=== PATIENT | female | born 1935 | race Caucasian/White ===

== ENCOUNTER 2017-05-07 14:53 | Inpatient (IN) | payer MEDICARE, OTHER ==
[2017-05-07] VITALS (23 sets, daily range): BP systolic 78–183; BP diastolic 53–128
[~2017-05-07] VITALS: Ht 157.5 cm; Wt 68.0 kg
[2017-05-07] MEDS ORDERED: METO25TA6 PO (15:03)
[2017-05-07] MEDS ORDERED: PROG200C7 MT (15:04)
[2017-05-07] MEDS ORDERED: HYDR25TA PO (15:04)
[2017-05-07 15:51] LABS: CHLORIDE 104 mEq/L (98-107)
[2017-05-07 15:52] LABS: BASOPHILS % 0.9 % (0.0-2.0); EOSINOPHILS % 2.2 % (0.0-5.0); HEMATOCRIT. 34.4 % (36.0-48.0); HEMOGLOBIN. 11.6 g/dL (12.0-16.0); LYMPHOCYTES % 28.3 % (20.0-50.0); MEAN CORPUSCULAR HEMOGLOBIN 31.1 pg (28.0-32.0); MEAN CORPUSCULAR VOLUME 91.9 fL (81.0-99.0); MEAN PLATELET VOLUME 7.8 fl (7.4-10.4); NEUTROPHILS % 56.6 % (40.0-76.0); PLATELET 177 x1000/uL (130-400); RED BLOOD CELL COUNT 3.74 mill/uL (4.2-5.4); RED CELL DISTRIBUTION WIDTH 13.7 % (11.6-14.6)
[2017-05-07 15:59] LABS: INR 1.1
[2017-05-07 16:00] LABS: CARBON DIOXIDE 28 mEq/L (21-32)
[2017-05-07] MEDS ORDERED: NICARDIPINE 50 MG in SODIUM CHLORIDE 0.9% 230 ML IV PRN (17:45)
[2017-05-07] MEDS: HYDRALAZINE 20MG/ML VIAL IV PRN (20:18)
[2017-05-07] MEDS: DEXT 5%/LACTATED RINGERS 1,000 ML IV SCH (20:20)
[2017-05-07] MEDS: PANTOPRAZOLE SODIUM 40 MG/VIAL IV SCH (21:31)
[2017-05-07] MEDS: PHENYTOIN SODIUM 100MG/2ML VIAL IV SCH (21:31)
[2017-05-07] MEDS ORDERED: PRAS1TAB4 PO (23:22)
[2017-05-07] MEDS ORDERED: BIEST (23:22)
[2017-05-07] MEDS ORDERED: PROGESTERONE TOP (23:22)
[2017-05-08] VITALS (56 sets, daily range): BP systolic 92–172; BP diastolic 32–100
[2017-05-08 04:49] LABS: HEMATOCRIT. 33.8 % (36.0-48.0); HEMOGLOBIN. 11.4 g/dL (12.0-16.0); MEAN CORPUSCULAR HEMOGLOBIN 31.2 pg (28.0-32.0); MEAN CORPUSCULAR VOLUME 92.1 fL (81.0-99.0); MEAN PLATELET VOLUME 8.1 fl (7.4-10.4); PLATELET 156 x1000/uL (130-400); RED BLOOD CELL COUNT 3.67 mill/uL (4.2-5.4); RED CELL DISTRIBUTION WIDTH 13.6 % (11.6-14.6)
[2017-05-08 04:57] LABS: INR 1.1; PARTIAL THROMBOPLASTIN TIME 27.1 sec (24.0-34.0); PROTHROMBIN TIME 11.3 sec
[2017-05-08 05:12] LABS: CARBON DIOXIDE 27 mEq/L (21-32); CHLORIDE 105 mEq/L (98-107)
[2017-05-08] MEDS: PHENYTOIN SODIUM 100MG/2ML VIAL IV SCH (06:00)
[2017-05-08] MEDS ORDERED: POVIDONE-IODINE OINT 28.4GM TOP ONE (06:29)
[2017-05-08] MEDS ORDERED: GELATIN SPONGE,ABSORBABLE SZ 100 ONE (06:29)
[2017-05-08] MEDS ORDERED: THROMBIN (BOVINE) 5000 UNITS/VIAL TOP ONE ×2 (06:29→06:30)
[2017-05-08] MEDS ORDERED: BACITRACIN ZINC 15GM TUBE TOP ONE (06:30)
[2017-05-08] MEDS ORDERED: LIDOCAINE HCL/EPINEPHRINE 0.5%-EPI 1:200,000 50 ML VIAL INFIL ONE (06:30)
[2017-05-08] MEDS ORDERED: BACITRACIN 50,000 UNITS/VIAL ONE (06:30)
[2017-05-08] MEDS ORDERED: NORMAL SALINE 0.9% 10 ML SYR ONE (06:30)
[2017-05-08] MEDS: NICARDIPINE 100 MG in SODIUM CHLORIDE 0.9% 100 ML IV PRN (07:50)
[2017-05-08] MEDS: PANTOPRAZOLE SODIUM 40 MG/VIAL IV SCH (08:00)
[2017-05-08] MEDS ORDERED: ROCURONIUM BROMIDE 10MG/ML VIAL 5ML IV ONE (08:36)
[2017-05-08] MEDS ORDERED: LIDOCAINE HCL 1% 20ML VIAL (Pyxis) INJ ONE (08:36)
[2017-05-08] MEDS ORDERED: CEFAZOLIN SODIUM 1000MG/VIAL ONE (08:36)
[2017-05-08] MEDS ORDERED: PROPOFOL 200MG/20ML VIAL IV ONE (08:36)
[2017-05-08] MEDS ORDERED: MIDAZOLAM HCL 2 MG/2 ML VIAL ONE (08:37)
[2017-05-08] MEDS ORDERED: FENTANYL CITRATE/PF 50MCG/ML 2ML VIAL ONE (08:37)
[2017-05-08] MEDS ORDERED: DEXAMETHASONE 4MG/ML 1ML VIAL ONE (08:49)
[2017-05-08] MEDS ORDERED: ONDANSETRON HCL 4MG/2ML VIAL ONE (08:51)
[2017-05-08] MEDS ORDERED: NEOSTIGMINE METHYLSULFATE 1MG/ML 10 ML VIAL ONE (09:24)
[2017-05-08] MEDS ORDERED: GLYCOPYRROLATE 0.2 MG/ML 2ML VIAL ONE (09:24)
[2017-05-08] MEDS ORDERED: MORPHINE SULFATE 2 MG/ML CPJ (NOT FOR IM USE) IV PRN (10:15)
[2017-05-08 10:17] LABS: PLATELET ESTIMATE NORMAL
[2017-05-08] MEDS: LEVETIRACETAM 500 MG in SODIUM CHLORIDE 0.9% 100 ML IV SCH ×2 (10:47→21:01)
[2017-05-08] MEDS ORDERED: IPRATROPIUM/ALBUTEROL 0.5-3(2.5)MG/3ML NEB HHN PRN (11:15)
[2017-05-08] MEDS: DEXT 5%/LACTATED RINGERS 1,000 ML IV SCH (14:46)
[2017-05-09] VITALS (47 sets, daily range): BP systolic 102–146; BP diastolic 42–102
[2017-05-09] MEDS: PANTOPRAZOLE SODIUM 40 MG/VIAL IV SCH (08:58)
[2017-05-09] MEDS: LEVETIRACETAM 500 MG in SODIUM CHLORIDE 0.9% 100 ML IV SCH ×2 (09:01→21:09)
[2017-05-09] MEDS: DEXT 5%/LACTATED RINGERS 1,000 ML IV SCH (09:55)
[2017-05-09] MEDS ORDERED: POTASSIUM CHLORIDE 20MEQ/PACKET PO NR (11:45)
[2017-05-09] MEDS: ONDANSETRON HCL 4MG/2ML VIAL IV PRN (20:00)
[2017-05-09] MEDS: MORPHINE SULFATE 2 MG/ML CPJ (NOT FOR IM USE) IV PRN (20:01)
[2017-05-10] VITALS (61 sets, daily range): BP systolic 104–166; BP diastolic 48–87
[2017-05-10] MEDS: ONDANSETRON HCL 4MG/2ML VIAL IV PRN ×3 (05:23→22:45)
[2017-05-10] MEDS: DEXT 5%/LACTATED RINGERS 1,000 ML IV SCH ×2 (05:25→21:28)
[2017-05-10] MEDS: MORPHINE SULFATE 2 MG/ML CPJ (NOT FOR IM USE) IV PRN ×3 (05:25→22:45)
[2017-05-10 05:58] LABS: BASOPHILS % 0.7 % (0.0-2.0); EOSINOPHILS % 0.7 % (0.0-5.0); HEMOGLOBIN. 10.6 g/dL (12.0-16.0); LYMPHOCYTES % 35.2 % (20.0-50.0); MEAN CORPUSCULAR HEMOGLOBIN 31.6 pg (28.0-32.0); MEAN CORPUSCULAR VOLUME 92.8 fL (81.0-99.0); MEAN PLATELET VOLUME 8.3 fl (7.4-10.4); MONOCYTES % 12.2 % (2.0-8.0); NEUTROPHILS % 51.2 % (40.0-76.0); PLATELET 134 x1000/uL (130-400); RED BLOOD CELL COUNT 3.34 mill/uL (4.2-5.4); RED CELL DISTRIBUTION WIDTH 13.6 % (11.6-14.6)
[2017-05-10 06:03] LABS: INR 1.1; PARTIAL THROMBOPLASTIN TIME 24.3 sec (24.0-34.0); PROTHROMBIN TIME 10.9 sec
[2017-05-10 06:09] LABS: CARBON DIOXIDE 28 mEq/L (21-32); CHLORIDE 108 mEq/L (98-107)
[2017-05-10] MEDS: PANTOPRAZOLE SODIUM 40 MG/VIAL IV SCH (08:59)
[2017-05-10] MEDS: LEVETIRACETAM 500 MG in SODIUM CHLORIDE 0.9% 100 ML IV SCH ×2 (09:03→21:18)
[2017-05-10] MEDS ORDERED: BACITRACIN ZINC 15GM TUBE TOP ONE (10:18)
[2017-05-10] MEDS ORDERED: POVIDONE-IODINE OINT 28.4GM TOP ONE (10:18)
[2017-05-10] MEDS ORDERED: GELATIN SPONGE,ABSORBABLE SZ 100 ONE (10:18)
[2017-05-10] MEDS ORDERED: NORMAL SALINE 0.9% 10 ML SYR ONE (10:19)
[2017-05-10] MEDS ORDERED: THROMBIN (BOVINE) 5000 UNITS/VIAL TOP ONE (10:19)
[2017-05-10] MEDS ORDERED: LIDOCAINE HCL/EPINEPHRINE 0.5%-EPI 1:200,000 50 ML VIAL INFIL ONE (10:20)
[2017-05-10] MEDS ORDERED: BACITRACIN 50,000 UNITS/VIAL ONE (10:20)
[2017-05-10] MEDS: NICARDIPINE 100 MG in SODIUM CHLORIDE 0.9% 100 ML IV PRN (15:59)
[2017-05-11] VITALS (73 sets, daily range): BP systolic 100–151; BP diastolic 49–94
[2017-05-11] MEDS: ONDANSETRON HCL 4MG/2ML VIAL IV PRN ×3 (04:23→22:06)
[2017-05-11] MEDS: MORPHINE SULFATE 2 MG/ML CPJ (NOT FOR IM USE) IV PRN ×2 (04:23→14:40)
[2017-05-11 05:32] LABS: HEMATOCRIT. 32.8 % (36.0-48.0); HEMOGLOBIN. 11.1 g/dL (12.0-16.0); MEAN CORPUSCULAR HEMOGLOBIN 31.3 pg (28.0-32.0); MEAN CORPUSCULAR VOLUME 92.7 fL (81.0-99.0); MEAN PLATELET VOLUME 8.3 fl (7.4-10.4); PLATELET 140 x1000/uL (130-400); RED BLOOD CELL COUNT 3.54 mill/uL (4.2-5.4); RED CELL DISTRIBUTION WIDTH 13.7 % (11.6-14.6)
[2017-05-11 05:44] LABS: CARBON DIOXIDE 28 mEq/L (21-32); CHLORIDE 107 mEq/L (98-107)
[2017-05-11 05:52] LABS: PARTIAL THROMBOPLASTIN TIME 26.6 sec (24.0-34.0); PROTHROMBIN TIME 10.7 sec
[2017-05-11] MEDS ORDERED: MIDAZOLAM HCL 2 MG/2 ML VIAL ONE (07:10)
[2017-05-11] MEDS ORDERED: FENTANYL CITRATE/PF 50MCG/ML 2ML VIAL ONE (07:10)
[2017-05-11] MEDS ORDERED: ROCURONIUM BROMIDE 10MG/ML VIAL 5ML IV ONE (07:41)
[2017-05-11] MEDS ORDERED: EPHEDRINE SULFATE 50MG/ML VIAL ONE (07:41)
[2017-05-11] MEDS ORDERED: CEFAZOLIN SODIUM 1000MG/VIAL ONE (07:41)
[2017-05-11] MEDS ORDERED: PROPOFOL 200MG/20ML VIAL IV ONE (07:41)
[2017-05-11] MEDS ORDERED: LIDOCAINE HCL 1% 20ML VIAL (Pyxis) INJ ONE (07:41)
[2017-05-11] MEDS ORDERED: SODIUM CHLORIDE 0.9% 10ML VIAL ONE (07:41)
[2017-05-11] MEDS ORDERED: ONDANSETRON HCL 4MG/2ML VIAL ONE (07:42)
[2017-05-11] MEDS ORDERED: HYDROMORPHONE HCL/PF 2MG/ML CPJ IV PRN (08:00)
[2017-05-11] MEDS ORDERED: ONDANSETRON HCL 4MG/2ML VIAL IV PRN (08:00)
[2017-05-11] MEDS ORDERED: LABETALOL HCL 20MG/4ML CARPUJECT IV PRN (08:00)
[2017-05-11] MEDS ORDERED: MEPERIDINE HCL/PF 25MG/ML CPJ IV PRN (08:00)
[2017-05-11] MEDS ORDERED: GLYCOPYRROLATE 0.2 MG/ML 2ML VIAL ONE (08:36)
[2017-05-11] MEDS ORDERED: NEOSTIGMINE METHYLSULFATE 1MG/ML 10 ML VIAL ONE (08:36)
[2017-05-11] MEDS ORDERED: HYDRALAZINE 20MG/ML VIAL ONE (08:45)
[2017-05-11 10:54] LABS: ATYPICAL LYMPHOCYTES 5
[2017-05-11 10:55] LABS: PLATELET ESTIMATE NORMAL
[2017-05-11] MEDS: LEVETIRACETAM 500 MG in SODIUM CHLORIDE 0.9% 100 ML IV SCH ×2 (11:21→21:08)
[2017-05-11] MEDS: PANTOPRAZOLE SODIUM 40 MG/VIAL IV SCH (11:21)
[2017-05-11] MEDS ORDERED: DEXT 5%/LACTATED RINGERS 1,000 ML IV SCH (12:30)
[2017-05-11] MEDS ORDERED: CEFAZOLIN SODIUM 1000MG/VIAL IV SCH (14:00)
[2017-05-11] MEDS: CEFAZOLIN 1000MG PREMIX 50 ML IV SCH ×2 (14:41→21:08)
[2017-05-11] MEDS ORDERED: MORPHINE SULFATE 4 MG/ML CPJ (NOT FOR IM USE) IV PRN (19:00)
[2017-05-11] MEDS: BACITRACIN ZINC 15GM TUBE TOP SCH (21:08)
[2017-05-11] MEDS: DEXT 5%/LACTATED RINGERS 1,000 ML IV SCH (21:09)
[2017-05-11] MEDS: MORPHINE SULFATE 4 MG/ML CPJ (NOT FOR IM USE) IV PRN (22:07)
[2017-05-12] VITALS (49 sets, daily range): BP systolic 96–161; BP diastolic 49–110
[2017-05-12] MEDS: MORPHINE SULFATE 4 MG/ML CPJ (NOT FOR IM USE) IV PRN ×3 (02:59→18:09)
[2017-05-12] MEDS: CEFAZOLIN 1000MG PREMIX 50 ML IV SCH ×3 (05:16→20:48)
[2017-05-12] MEDS: PANTOPRAZOLE SODIUM 40 MG/VIAL IV SCH (08:01)
[2017-05-12] MEDS: HYDRALAZINE 20MG/ML VIAL IV PRN (08:02)
[2017-05-12] MEDS: BACITRACIN ZINC 15GM TUBE TOP SCH ×2 (08:13→20:49)
[2017-05-12] MEDS: LEVETIRACETAM 500 MG in SODIUM CHLORIDE 0.9% 100 ML IV SCH (09:01)
[2017-05-12] MEDS: LEVETIRACETAM 500MG/5ML CUP PO SCH (20:48)
[2017-05-12] MEDS: OMEPRAZOLE 20MG CAPSULE EXTENDED RELEASE PO SCH (20:48)
[2017-05-13] VITALS (39 sets, daily range): BP systolic 113–165; BP diastolic 43–95
[2017-05-13] MEDS: CEFAZOLIN 1000MG PREMIX 50 ML IV SCH (06:16)
[2017-05-13] MEDS: OMEPRAZOLE 20MG CAPSULE EXTENDED RELEASE PO SCH ×2 (06:16→20:10)
[2017-05-13] MEDS: LEVETIRACETAM 500MG/5ML CUP PO SCH (08:55)
[2017-05-13] MEDS: BACITRACIN ZINC 15GM TUBE TOP SCH ×2 (08:56→20:11)
[2017-05-13] MEDS ORDERED: HYDROCODONE/ACETAMINOPHEN 5/325MG TABLET PO PRN (12:45)
[2017-05-13] MEDS: METOPROLOL TARTRATE 25MG TABLET PO SCH ×2 (13:08→20:10)
[2017-05-13] MEDS ORDERED: LOPERAMIDE HCL 2MG CAPSULE PO PRN (17:00)
[2017-05-13] MEDS: LEVETIRACETAM 500MG TABLET PO SCH (20:10)
[2017-05-14] VITALS (27 sets, daily range): BP systolic 103–165; BP diastolic 55–99
[2017-05-14] MEDS: OMEPRAZOLE 20MG CAPSULE EXTENDED RELEASE PO SCH (06:43)
[2017-05-14] MEDS: LEVETIRACETAM 500MG TABLET PO SCH (09:39)
[2017-05-14] MEDS: METOPROLOL TARTRATE 25MG TABLET PO SCH (09:40)
[2017-05-14] MEDS: BACITRACIN ZINC 15GM TUBE TOP SCH (09:40)
== END 2017-05-14 16:15 | disposition home health service (06) | DRG 25 ==
LOC: ER 15:25 → MICUNO 15:55 → EDBEDREQ 15:56 → ENRESERV 16:05
PROVIDERS: ADMIT Internal Medicine; ATTEND Internal Medicine
PROC: 00H032Z Insertion of Monitoring Device into Brain, Percutaneous Approach (ICD-10-PCS; 2017-05-08)
PROC: 00U207Z Supplement Dura Mater with Autologous Tissue Substitute, Open Approach (ICD-10-PCS; 2017-05-08)
PROC: 4A103BD Monitoring of Intracranial Pressure, Percutaneous Approach (ICD-10-PCS; 2017-05-08)
PROC: 009400Z Drainage of Intracranial Subdural Space with Drainage Device, Open Approach (ICD-10-PCS; principal; 2017-05-08 07:00)
PROC: 009400Z Drainage of Intracranial Subdural Space with Drainage Device, Open Approach (ICD-10-PCS; 2017-05-11)
DX: S06.5X0A Traumatic subdural hemorrhage without loss of consciousness, initial encounter (principal); G93.40 Encephalopathy, unspecified; E11.9 Type 2 diabetes mellitus without complications; E87.6 Hypokalemia; I25.10 Atherosclerotic heart disease of native coronary artery without angina pectoris; E86.0 Dehydration; R56.9 Unspecified convulsions; E78.00 Pure hypercholesterolemia, unspecified; E78.5 Hyperlipidemia, unspecified; I10 Essential (primary) hypertension; I34.0 Nonrheumatic mitral (valve) insufficiency; J44.9 Chronic obstructive pulmonary disease, unspecified; Z82.49 Family history of ischemic heart disease and other diseases of the circulatory system; Z83.3 Family history of diabetes mellitus; Z87.891 Personal history of nicotine dependence; Z79.899 Other long term (current) drug therapy; Y93.89 Activity, other specified; Y92.89 Other specified places as the place of occurrence of the external cause; Y99.8 Other external cause status; V89.2XXA Person injured in unspecified motor-vehicle accident, traffic, initial encounter
CPT/HCPCS: 36415; 70450; 71010; 80048; 80053; 83735; 84443; 85025; 85610; 85730; 86850; 86900; 88304; 93005; 93306; 97116; 97163; 97166; 99291; A4216; C1713; C9113; J0171; J0360; J0690; J1100; J1165; J1953; J2250; J2270; J2405; J2704; J2710; J3010; J3490; J7050; J7121